=== PATIENT | female | born 1985 | race Caucasian/White ===

== ENCOUNTER → 2016-10-31 | Outpatient (CLI) | payer OTHER ==
[~2016-10-31] MED LIST: AZEL15GE TOP; BIOF500C2; FERR1TAB23; PRENTAB26 PO; RANI150T3 PO
[2016-10-31 18:39] LABS: GTGD 50 Grams
[2016-11-02 13:56] LABS: AFP CONCENTRATION 33.6 NG/ML; AFP MULTIPLE OF MEDIAN 0.86; AFPTS GESTATIONAL AGE 16.7 WEEKS; AFPTS INSULIN DEP DIABETIC? NO; AFPTS MATERNAL WT 133 LBS; ALPHA-FETOPROTEIN RACE CAUCASIAN=W; HISTORY OF NTD NO; REPEAT SAMPLE? NO
== END | disposition home or self-care (01) ==
LOC: C.LAB1850 16:40
PROVIDERS: ATTEND Obstetrics & Gynecology
DX: Z34.02 Encounter for supervision of normal first pregnancy, second trimester (principal)

== ENCOUNTER → 2017-01-13 | Outpatient (CLI) | payer OTHER ==
[2017-01-13 16:02] LABS: URINE APPEARANCE CLEAR (CLEAR); URINE BILIRUBIN NEG (NEG); URINE COLOR YELLOW; URINE NITRITE NEG (NEG); URINE PH 7.5 (4.5-7.5); UROBILINOGEN NEG (NEG)
[2017-01-13 16:22] LABS: MANUAL MICROSCOPIC REQUIRED? NO; REVIEW REQ? NO
== END | disposition home or self-care (01) ==
LOC: C.LABSPEC 15:35
PROVIDERS: ATTEND Obstetrics & Gynecology
DX: Z34.03 Encounter for supervision of normal first pregnancy, third trimester (principal)

== ENCOUNTER → 2017-01-13 | Outpatient (CLI) | payer OTHER ==
[2017-01-13 16:34] LABS: HEMATOCRIT 32.6 % (37-47)
[2017-01-13 18:27] LABS: GTGD 50 Grams
== END | disposition home or self-care (01) ==
LOC: C.LAB1850 14:56
PROVIDERS: ATTEND Obstetrics & Gynecology
DX: Z34.03 Encounter for supervision of normal first pregnancy, third trimester (principal)

== ENCOUNTER → 2017-03-16 | Outpatient (CLI) | payer OTHER | END | disposition home or self-care (01) | LOC: C.LABSPEC 17:53 | PROVIDERS: ATTEND Obstetrics & Gynecology | DX: Z34.03 Encounter for supervision of normal first pregnancy, third trimester (principal) ==

== ENCOUNTER 2017-04-12 03:13 | Inpatient (IN) | payer OTHER ==
[~2017-04-12] VITALS: Ht 157.5 cm; Wt 71.8 kg
[~2017-04-12 03:13] MED LIST changes: -BIOF500C2; -FERR1TAB23; -RANI150T3 PO
[2017-04-20] MEDS ORDERED: BIOF500C2 ×2 (20:35)
[2017-04-20] MEDS ORDERED: FERR1TAB23 ×2 (20:35)
[2017-04-20] MEDS ORDERED: RANI150T3 PO (20:36)
[2017-04-21] MEDS ORDERED: LACTATED RINGER'S 1000ML 1,000 ML IV PRN (07:54)
[2017-04-21] MEDS ORDERED: LACTATED RINGER'S 1000ML 500 ML IV PRN ×2 (07:54→12:02)
[2017-04-21] MEDS ORDERED: OXYTOCIN 30 UNITS/500ML NSS IV PRN ×2 (08:00→21:00)
[2017-04-21] MEDS: LACTATED RINGER'S 1000ML 1,000 ML IV SCH ×3 (08:12→14:26)
[2017-04-21 08:38] LABS: HEMATOCRIT 36.4 % (37-47); MEAN CELL VOLUME 86.5 fL (80-100); MEAN CORPUSCULAR HEMOGLOBIN 28.7 pg (25-34); MEAN CORPUSCULAR HGB CONC 33.2 g/dl (32-36); MEAN PLATELET VOLUME 10.7 fL (7.4-10.4); PLATELET COUNT 196 K/uL (130-400); RED BLOOD COUNT 4.21 M/uL (4.2-5.4); WHITE BLOOD COUNT 10.65 K/uL (4.8-10.8)
[2017-04-21 08:59] VITALS: Ht 157.5 cm; Wt 71.8 kg
--- NOTE | 2017-04-21 09:54 | Medical Student: [facility] ---
Med Student History & Physical Date of Service Apr 21, 2017. Chief Complaint Induction History of Present Illness Source: patient, spouse Yesenia is a 31 year old with an EDC of 04/12/17 confirmed by LMP on who presents today at 41+2 weeks GA for postdate induction. A cervical Morales catheter was placed yesterday. She presently denies vaginal bleeding and leakage of fluid (but reports discharge yesterday from the loss of the mucus plug). She reports movements and contractions. Pt has had an unremarkable course. labs: Blood type O+ GBS negative Negative Ab screen Initial Hct/Hb - 35/12 Rubella immune VDRL/RPR nonreactive HBsAg negative HIV counseling/testing negative Gonorrhea/chlamydia negative Diabetes screen - 121 mg/dL Negative AFP, Panorama screening OB History as per HPI FIELD REP History Reached menarche at the age of 10. Cycles last 28 days. Menses typically last 4 days. Patient has 3-year history of OCP use. Past history of breast lumps that were determined to be benign. Past Medical History Past history of gastritis. No allergies. Past Surgical History Past hx of wisdom teeth removal and tonsillectomy. Family History Father is pre-diabetic. Reports no hx of MO, stroke, HTN, DM in mother or siblings. Hx of pancreatic cancer in grandfather. 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, [place] and [place]) Allergies Coded Allergies: No Known Allergies (Unverified , 04/21/17) Home Medications Bioflavonoid Products (Vitamin C) Ferrous Sulfate (Iron), Unknown Dose Multivit/Min/Iron/Fol Ac/Pren ( Vitamin), 1 TAB PO DAILY Review of Systems Constitutional: No fever, No chills Eyes: No worsening of vision Respiratory: No wheezing, No shortness of breath, No dyspnea on exertion, No dyspnea at rest Cardiovascular: No chest pain, No edema Abdomen: + constipation, No nausea, No vomiting, No diarrhea Musculoskeletal: No calf pain Genitourinary - Female: No dysuria, No urinary frequency, No urinary urgency, No urinary incontinence, No urinary retention ROS as per HPI Physical Exam General Appearance: WD/WN, no apparent distress Respiratory/Chest: chest non-tender, lungs clear, normal breath sounds, no respiratory distress, no accessory muscle use Cardiovascular: regular rate, rhythm, no gallop, no murmur Abdomen / GI: normal bowel sounds, non tender, soft Fundal Height: 45.5 cm Yesenia is a well-nourished, well-developed patient who was awake and alert during the interview. Heart rate was normal with no gallops or murmurs on auscultation. Lungs were clear to auscultation bilaterally. Abdominal exam revealed a gravid, soft, non-tender uterus. Fundus measured 45.5 cm. +FHTs. Vertex. EFW 7 lbs. Palpable contractions. Examination of lower extremities revealed no pedal edema. Absent deep calf tenderness. Pelvic exam - 3/80%/-2/midposition/soft per Dr. Farnsworth. Neuro - DTRs 2/4 bilaterally. No clonus. Monitoring External Monitor: EFM shows a baseline of 135 bpm with moderate variability, absent accels, and absent decels. Tocodynamometer: Contractions occurring every 3 minutes. Laboratory Results Test 04/21/17 08:07 Assessment and Plan Yesenia is a 31 year old at 41+2 weeks gestation who presents today for postdate induction. has had an unremarkable course. tracing category I. Expectant management of induction with Pitocin. Continue with heart rate monitoring and tocodynamometer.
[2017-04-21] MEDS ORDERED: BUPIVACAINE 0.25% 30 ML VIAL ONE (10:51)
[2017-04-21] MEDS ORDERED: FENTANYL 2MCG/ML ROPIV 1.25MG/ML 100ML BAG EPI ONE (10:51)
[2017-04-21] MEDS ORDERED: FENTANYL CITRATE INJ 50 MCG/1 ML 2 ML VIAL ONE (10:51)
[2017-04-21] MEDS ORDERED: EpHEDrine SULFATE INJ 50 MG/ML AMP ONE (10:51)
[2017-04-21] MEDS ORDERED: NALOXONE HCL INJ 1 MG in SODIUM CHLORIDE 0.9% 1000ML 1,000 ML IV PRN ×4 (12:02)
[2017-04-21] MEDS ORDERED: DiphenhydrAMINE HCL 50 MG/ML VIAL IV PRN (12:15)
[2017-04-21] MEDS ORDERED: EpHEDrine SULFATE INJ 50 MG/ML AMP IV PRN (12:15)
[2017-04-21] MEDS ORDERED: NALBUPHINE HCL INJ 10 MG/ML AMP IV PRN (12:15)
[2017-04-21] MEDS ORDERED: PROMETHAZINE HCL INJ 25 MG in SODIUM CHLORIDE 0.9% 50ML 50 ML IV PRN (12:15)
[2017-04-21] MEDS ORDERED: NALOXONE HCL INJ 0.4 MG/1 ML VIAL/CARP IV PRN (12:15)
[2017-04-21] MEDS ORDERED: ONDANSETRON INJ 2 MG/ML 2 ML VIAL IV PRN (12:15)
[2017-04-21] MEDS ORDERED: FENTANYL 2MCG/ML ROPIV 1.25MG/ML 100ML BAG EPI PRN (12:15)
[2017-04-21] MEDS ORDERED: SUPERCREAM 0.870 % 15GM JAR EXT PRN (21:00)
[2017-04-21] MEDS ORDERED: LANOLIN OINT EXT PRN ×2 (21:00)
[2017-04-21] MEDS ORDERED: ACETAMINOPHEN/CODEINE 300/30MG TAB PO PRN (21:00)
[2017-04-21] MEDS ORDERED: HYDROCORTISONE ACETATE 25 MG SUPP PR PRN (21:00)
[2017-04-21] MEDS ORDERED: DIPHTHERIA/TETANUS/PERTUSSIS 0.5 ML SYR/VIAL IM. ONE (21:00)
[2017-04-21] MEDS ORDERED: ACETAMINOPHEN 325 MG TAB PO PRN (21:00)
--- NOTE | 2017-04-21 21:08 | Vaginal Delivery Summary ---
Vaginal Delivery Summary Patient is a 31-year-old 1 para 0 with an EDC of and Ama at 41+ weeks gestational age was admitted for a postdates induction. Patient's EDC established by dates and confirmed by first trimester ultrasound. The patient had had a benign course. Blood type O+ antibody negative rubella immune hepatitis B negative she had a negative panorama and a negative maternal serum AFP. The patient had a normal 1 hour Glucola 2. The patient had a negative surgical history Mr. yadav. On the evening prior to admission the patient presented to labor and delivery as an outpatient for placement of a cervical Morales. In the morning the cervical Morales was removed and the patient was noted to be 3 cm dilated. Pitocin was initiated per induction protocol. Irregular labor pattern was established patient became uncomfortable anesthesia was consulted and an epidural was placed. Following placement of the epidural the patient was 6 cm dilated she had artificial rupture of membranes for light meconium fluid. Over the next 3 hours the patient progressed to full dilatation. The patient had a dense block from her epidural and the rate was decreased from 10-8 mU/m. Patient began to get better sensation and began her second stage. The patient pushed for little over an hour and a half and was still not having good sensation and her epidural was decreased to 6. The patient continued to push I discussion was made, after 2-1/2 hours that operative vaginal delivery could be attempted for maternal exhaustion. The patient though effectively Pushing and was able to deliver a viable male with Apgars of 9 and 10 over a midline episiotomy with a third-degree extension and a left sulcus tear. Cord gases, cord blood samples, and core blood donation kit was collected. Placenta was delivered spontaneously. The rectus muscle was plicated with 3 figure of 8 2-0 Vicryl sutures. The sulcus tear was closed with a 4-0 running Vicryl suture. The episiotomy was then repaired with 40 and 2-0 Vicryl in a routine fashion. Estimated blood loss for the procedure was 500 cc, sponge and needle count was correct.
--- NOTE | 2017-04-21 21:39 | Anesthesia Procedure Note ---
Anesthesia Epidural Removal Nt Date & Time Apr 21, 2017 at 21:38 Vital Signs Pain Intensity: 0.0 Notes Mental Status: alert / awake / arousable, participated in evaluation Nausea / Vomiting: adequately controlled Pain: adequately controlled Airway Patency, RR, SpO2: stable & adequate BP & HR: stable & adequate Hydration State: stable & adequate Neuraxial Anesthesia: was administered Anesthetic Complications: no major complications apparent, pt satisfied with anesthetic care Epidural: removed without complications, with tip intact
[2017-04-22] MEDS: ACETAMINOPHEN/CODEINE 300/30MG TAB PO PRN ×4 (00:23→19:48)
[2017-04-22] MEDS: IBUPROFEN 600 MG TAB PO PRN ×5 (00:23→19:47)
[2017-04-22] MEDS: BENZOCAINE 20% AER SPR 82.5 GM CAN EXT PRN (00:24)
[2017-04-22 00:30] VITALS: BP 118/77; PULSE 92; TEMP 36.8
[2017-04-22 05:00] VITALS: BP 109/69; PULSE 97; TEMP 36.6
[2017-04-22 06:45] LABS: HEMATOCRIT 29.6 % (37-47)
[2017-04-22 08:00] VITALS: BP 104/72; PULSE 86; TEMP 36.7; O2SAT 99
--- NOTE | 2017-04-22 08:30 | Progress Note ---
Subjective Apr 22, 2017. Subjective conversation w/ patient, physical exam Feeding Type: Breast Feeding Objective Vital Signs Date Time Temp Pulse Resp B/P (MAP) Pulse Ox O2 Delivery O2 Flow Rate FiO2 04/22/17 05:00 36.6 97 20 109/69 (82) Room Air 04/22/17 00:30 36.8 92 20 118/77 (91) Room Air 04/22/17 00:30 Room Air Physical Exam General Appearance: WELL-APPEARING, NO APPARENT DISTRESS Fundus: Firm, Non-Tender Extremities: no calf tenderness Laboratory Results Last 24 Hours Test 04/22/17 06:27 Hemoglobin 9.3 g/dL Hematocrit 29.6 % Assessment and Plan Post- Day#: 1 Continue Routine Care: - routine care - doing well
[2017-04-22] MEDS: PRENATAL VITAMIN TAB PO SCH (08:44)
[2017-04-22] MEDS: FERROUS SULFATE 325 MG TAB PO SCH (08:44)
[2017-04-22] MEDS: DOCUSATE SODIUM 100 MG CAP PO SCH ×2 (08:44→19:46)
[2017-04-22 12:35] VITALS: BP 107/71; PULSE 80; TEMP 37; O2SAT 98
[2017-04-22 15:27] VITALS: BP 103/60; PULSE 80; TEMP 36.5; O2SAT 98
[2017-04-22 19:45] VITALS: BP 107/68; PULSE 92; TEMP 36.4
[2017-04-22] MEDS ORDERED: BISACODYL 5 MG TABEC PO SCH (20:00)
--- NOTE | 2017-04-22 23:50 | Discharge Instructions ---
Discharge Instructions Date of Service Apr 22, 2017. Admission Reason for Admission: Induction Discharge Discharge Diagnosis / Problem: after delivery Discharge Goals Goal(s): Routine recovery after delivery Medications Continue Dispensed Medications: supercream, dermaplast, tucks, lansinoh Activity Recommendations Activity Limitations: as noted below . Instructions / Follow-Up Instructions / Follow-Up ACTIVITY RECOMMENDATIONS: * Gradual return to full activity over the next 2-3 weeks. * No lifting - nothing heavier than baby over the next 2-3 weeks. * Do not engage in vigorous exercise, sexual activity or sports until cleared by your physician. * Do not drive or operate any motorized equipment until cleared by your physician. * You may shower/bathe daily. MEDICATIONS: For discomfort or pain, you may use Acetaminophen (Tylenol), Ibuprofen (Advil), or Naproxen (Aleve) following the package directions. For constipation you may use Colace following the package directions. BREAST CARE: If you are not breast feeding: * Wear a supportive bra 24 hours a day for one to two weeks. * Avoid stimulating your breasts and nipples as much as possible during the first few weeks after delivery. * When taking a shower, have the warm water hit your back, not breasts. * When your breasts feel full, apply ice packs. Usually three to four times a day helps ease the discomfort. * Take a mild pain medication (Tylenol / Motrin) when you are uncomfortable. If breast feeding: * Use breast milk to lubricate nipples. Lansinoh cream may be used for sore nipples. You do not need to remove cream prior to breast feeding. If using a different brand of cream, check the label for directions regarding removal of cream prior to nursing. * Wear a supportive bra. * If having problems with breasts or breast feeding, call a data quality consultant or your health care provider. EPISIOTOMY CARE: After delivery, if you have an episiotomy (stitches), the following steps will ease discomfort and aid healing. * For the first 24 hours after delivery, place ice packs next to your episiotomy to help reduce swelling. * After the first 24 hour-period, sitz baths, either portable or in the tub, are suggested. A shower with a shower arm sprayed over the episiotomy may be comforting. * Kristen care should be done after each voiding and bowel movement. Squirt warm water from a plastic bottle over the perineum (region of the body between the anus and urinary opening) and pat dry. * Use Dermoplast to ease discomfort. Shake container. [place] directly over the episiotomy. Place a Tucks on a clean sanitary pad next to your episiotomy. SPECIAL CARE INSTRUCTIONS: When you are discharged from the hospital, it is important for you to follow the instructions listed below: * During the first week at home, you should be able to care for yourself and your baby. In addition, the usual light household activities are encouraged. * Limit your activities to the way you feel. Do not try to clean the house or move furniture. Be sensible. * If you actively engage in sports and have done so up until the time of your delivery, you may resume these activities as soon as you feel able. This may take up to one month or even longer. Use good judgment. * Continue to take your vitamins for at least six weeks after the of your baby. * Your diet need not be limited unless you were on a special diet before your delivery. Breast-feeding mothers need around 2500 calories per day and at least 64-80 ounces of fluid per day (8 to 10 glasses). * You should eat foods from the four major food groups. Crash diets or fad diets are to be avoided. Eating lean meats, fresh fruits and vegetables, low-fat dairy products, high fiber foods and a regular exercise program, will help you get back to your pre- weight without putting your health at risk. * Constipation is sometimes a problem after delivery. Take a mild laxative as needed. If breast feeding, Milk of Magnesia is acceptable to use. You may use a suppository or Fleets enema if no episiotomy. * A daily shower or tub bath is suggested. Be sure to thoroughly and gently dry the perineum. * A bloody vaginal discharge will usually continue until around four weeks post . A small amount of bleeding may continue for as long as six weeks. Vaginal discharge changes from the bright red bleeding after delivery to pink then brownish and finally yellowish-pink before becoming white and disappearing. * Bleeding may increase with activity. Your first period may come in 4-8 weeks. If you are breast feeding, your period may be delayed even longer. * Diggins (sex) can begin whenever both you and your partner feel comfortable and do not have any form of genital infection. It is recommended that you wait at least six weeks for internal and external healing to occur. If you have questions, please talk to your health care practitioner. A condom should be used to prevent infection and . * Foreplay, gentle intercourse and lubrication is very important the first several times to prevent pain. A water-based lubricant such as K-Y jelly or Astroglide may be used. * If you have RH negative blood and your baby is RH positive, you will receive RHOGAM by injection prior to discharge. The nurse will give you a card to keep with you that has the date and place that you received RHOGAM after delivery. * During your care, you had a Rubella screen done to check for the presence of rubella antibodies in your blood. If your test was negative, you will receive a Rubella vaccine prior to discharge. This vaccine may cause a fever, soreness at the injection site and flu-like symptoms. If these symptoms persist, notify your health care practitioner. is not advised for one month after a Rubella vaccine. * Verbalizes understanding of car seat law as reviewed with patient nursing. * Car Seat hand-out given and reviewed with patient by nursing. * Shaken baby information reviewed with patient by nursing. Call you doctor if: * Heavy bleeding (saturating several pads an hour) or passing clots the size of your fist. * A fever >101 degrees F (38.3 degrees C) on two occasions four hours apart and /or chills. * Unusual pain in the pelvic or vaginal areas. * "Baby Blues" lasting longer than two weeks. If you have any questions or concerns, call your health care practitioner at . FOLLOW UP VISIT: * Please call the office at to schedule a 6 week examination. It is important you keep this appointment. It is important for you to make arrangements for either yearly or twice yearly check-ups thereafter. Current Hospital Diet Patient's current hospital diet: Regular OB Diet Discharge Diet Recommended Diet: Regular Diet Pending Studies Studies pending at discharge: no Medical Emergencies . Who to Call and When: Medical Emergencies: If at any time you feel your situation is an emergency, please call 911 immediately. . Non-Emergent Contact Non-Emergency issues call your: Delineator . . "Provider Documentation" section prepared by Sandi Matta. . VTE Core Measure Inpt VTE Proph given/why not?: Treatment not indicated
[2017-04-23 01:30] VITALS: BP 103/66; PULSE 93; TEMP 36.6
[2017-04-23] MEDS: ACETAMINOPHEN/CODEINE 300/30MG TAB PO PRN ×3 (01:41→11:53)
[2017-04-23] MEDS: IBUPROFEN 600 MG TAB PO PRN ×3 (01:41→11:52)
--- NOTE | 2017-04-23 07:25 | Progress Note ---
Subjective Apr 23, 2017. Subjective conversation w/ patient, physical exam Ambulation: ambulating normally Voiding: no voiding problems Diet Tolerance: Regular Diet Lochia: Small Feeding Type: Breast Feeding Pain: no issues Objective Vital Signs Date Time Temp Pulse Resp B/P (MAP) Pulse Ox O2 Delivery O2 Flow Rate FiO2 04/23/17 01:30 36.6 93 18 103/66 (78) Room Air 04/23/17 01:30 Room Air 04/22/17 19:45 36.4 92 20 107/68 (81) Room Air 04/22/17 15:27 36.5 80 18 103/60 (74) 98 Room Air 04/22/17 15:20 Room Air 04/22/17 12:35 37.0 80 18 107/71 (83) 98 Room Air 04/22/17 08:40 Room Air 04/22/17 08:00 36.7 86 18 104/72 (83) 99 Room Air Physical Exam General Appearance: WELL-APPEARING, WD/WN, NO APPARENT DISTRESS Respiratory/Chest: lungs clear Cardiovascular: regular rate, rhythm Abdomen: non tender, soft Fundus: Firm, Relation to Umbilicus (at u, has not voided yet) Extremities: non-tender Assessment and Plan Post- Day#: 2 Continue Routine Care: stable, d/c home, instructions reviewed. f/u 6 wk pp check.
[2017-04-23 07:35] VITALS: BP 124/80; TEMP 36.6; O2SAT 98
[2017-04-23] MEDS: DOCUSATE SODIUM 100 MG CAP PO SCH (07:36)
[2017-04-23] MEDS: FERROUS SULFATE 325 MG TAB PO SCH (07:36)
[2017-04-23] MEDS: PRENATAL VITAMIN TAB PO SCH (07:36)
[2017-04-23] MEDS: BENZOCAINE 20% AER SPR 82.5 GM CAN EXT PRN (11:52)
[2017-04-23 12:20] VITALS: BP_DIAS 80; PULSE 93; TEMP 36.6
== END 2017-04-23 13:15 | disposition home or self-care (01) | DRG 775 ==
LOC: C.LD 04-21 07:43 → C.OBG 04-22 00:15
PROVIDERS: ADMIT Obstetrics & Gynecology; ATTEND Obstetrics & Gynecology
PROC: 10E0XZZ Delivery of Products of Conception, External Approach (ICD-10-PCS; principal; 2017-04-21)
PROC: 10907ZC Drainage of Amniotic Fluid, Therapeutic from Products of Conception, Via Natural or Artificial Opening (ICD-10-PCS; principal; 2017-04-21)
PROC: 3E033VJ Introduction of Other Hormone into Peripheral Vein, Percutaneous Approach (ICD-10-PCS; principal; 2017-04-21)
PROC: 0DQR0ZZ Repair Anal Sphincter, Open Approach (ICD-10-PCS; principal; 2017-04-21)
PROC: 0W8NXZZ Division of Female Perineum, External Approach (ICD-10-PCS; principal; 2017-04-21)
DX: O48.0 Post-term pregnancy (principal); O70.20 Third degree perineal laceration during delivery, unspecified; Z3A.41 41 weeks gestation of pregnancy; Z37.0 Single live birth

== ENCOUNTER 2017-04-20 18:07 | Outpatient (CLI) | payer OTHER ==
[~2017-04-20] VITALS: Ht 157.5 cm; Wt 72.0 kg
[2017-04-20 20:28] VITALS: Ht 157.5 cm; Wt 72.0 kg
[2017-04-20] MEDS ORDERED: BIOF500C2 ×2 (20:35)
[2017-04-20] MEDS ORDERED: FERR1TAB23 ×2 (20:35)
[2017-04-20] MEDS ORDERED: RANI150T3 PO (20:36)
== END 2017-04-20 20:14 | disposition home or self-care (01) ==
LOC: C.OPB 18:07 → C.LD 18:07 → C.OPB 20:14
PROVIDERS: ATTEND Obstetrics & Gynecology
DX: O48.0 Post-term pregnancy (principal); Z3A.41 41 weeks gestation of pregnancy

== ENCOUNTER → 2018-05-15 | Outpatient (CLI) | payer OTHER ==
[~2018-05-15] MED LIST changes: -AZEL15GE TOP; +BIOF500C2; +FERR1TAB23
== END | disposition home or self-care (01) ==
LOC: C.LABSPEC 17:37
PROVIDERS: ATTEND Obstetrics & Gynecology
DX: N94.810 Vulvar vestibulitis (principal)